=== PATIENT | male | born 1950 | race Caucasian/White ===

== ENCOUNTER 2019-10-02 07:10 | Day surgery (SDC) | payer MEDICARE, BC ==
[2019-10-02] MEDS ORDERED: Lactated Ringers 1,000 ML IV SCH (07:30)
[2019-10-02] MEDS ORDERED: Sodium Phosphate,Monobasic/Sodium Phosphate,Dibasic Enema 133 ML Bottle RECTAL ONE (07:35)
[2019-10-02] MEDS ORDERED: Propofol 200 MG/20 ML SDV ONE ×2 (07:59→09:12)
[2019-10-02] MEDS ORDERED: Midazolam 1 MG/ML 2 ML SDV ONE (07:59)
[2019-10-02] MEDS ORDERED: fentaNYL 100 MCG/2 ML SDV ONE (07:59)
--- NOTE | 2019-10-02 15:33 | OR ---
DATE OF PROCEDURE: 10/02/2019 SURGEON: Jadiel Mckeon MD PREOPERATIVE DIAGNOSIS: Strong family history of colon cancer with mother and sister. POSTOPERATIVE DIAGNOSES: 1. Diverticulosis. 2. Medium distal transverse colon polyp. 3. Small rectal polyp. PROCEDURE PERFORMED: Colonoscopy to the cecum with biopsy and then snare cautery polypectomy of distal transverse colon polyp, biopsy resection of small rectal polyp. ANESTHESIA: IV anesthesia with monitored anesthesia care. INDICATION: This 68-year-old white male is referred for a colonoscopy because of a strong family history of colon cancer. Both his older sister and mother had colon cancer. He says his last colonoscopic exam was done 15 years ago. He says he has been procrastinating. I counseled him for the procedure including risks and alternatives and he gave his informed consent to proceed. DESCRIPTION OF PROCEDURE: The patient was placed in the left lateral decubitus position. IV anesthesia was administered by the Anesthesia Service. Time-out was held. A rectal exam was performed, which was unremarkable. The flexible video Olympus colonoscope was introduced through his anus, up his rectum and out his colon, all the way to the cecum. En route, in the left colon, we saw a few scattered diverticula. There was no bleeding or inflammation associated with them. Additionally, en route in the distal transverse colon, we saw a medium-sized polyp. We initially biopsied it and then removed it with a snare. This involved placing the snare about its base, elevating up and away from the bowel wall, and applying electrocautery as the polyp was amputated. It was aspirated up through the scope and captured in a polyp trap. Once the cecum was reached, the scope was slowly withdrawn examining the mucosa throughout. No additional mucosal abnormalities noted until we reached the rectum. Here, we retroflexed the scope with the distal rectum appearing unremarkable. We straightened the scope. There saw a small polyp which was removed with a few bites of biopsy forceps. The scope was then removed. He tolerated the procedure well. Jadiel Mckeon MD /[id number]
== END 2019-10-02 10:40 | disposition home or self-care (01) ==
LOC: JP.SDS 07:10
PROVIDERS: ATTEND Surgery
DX: Z12.11 Encounter for screening for malignant neoplasm of colon (principal); D12.3 Benign neoplasm of transverse colon; D12.8 Benign neoplasm of rectum; K57.30 Diverticulosis of large intestine without perforation or abscess without bleeding; I10 Essential (primary) hypertension; G25.0 Essential tremor; Z87.891 Personal history of nicotine dependence; Z80.0 Family history of malignant neoplasm of digestive organs; Z79.899 Other long term (current) drug therapy
CPT/HCPCS: 45380; 45385; A9270; J2250; J2704; J3010; J7120

== ENCOUNTER → 2024-01-17 | Day surgery (SDC) | payer BC, MEDICARE ==
[~2024-01-17] MED LIST: Propofol 200 MG/20 ML SDV ONE; fentaNYL 100 MCG/2 ML SDV ONE
[2024-01-17] MEDS: Lactated Ringers 1,000 ML IV SCH (08:20)
== END ==
LOC: JP.SDS 07:54
PROVIDERS: ATTEND Student in an Organized Health Care Education/Training Program
DX: Z12.11 Encounter for screening for malignant neoplasm of colon (principal); D12.3 Benign neoplasm of transverse colon; K57.30 Diverticulosis of large intestine without perforation or abscess without bleeding; K64.5 Perianal venous thrombosis; I10 Essential (primary) hypertension; R25.1 Tremor, unspecified; E78.5 Hyperlipidemia, unspecified; Z87.891 Personal history of nicotine dependence; Z79.899 Other long term (current) drug therapy; Z79.82 Long term (current) use of aspirin
CPT/HCPCS: 45380; 88305; 93005; J2704; J3010; J7120

== ENCOUNTER 2024-04-04 10:04 | Emergency (ER) | payer MEDICARE ==
[2024-04-04 10:32] LABS: BASOPHILS ABSOLUTE AUTO 0.06 K/uL (0.00-0.10); BASOPHILS PERCENT AUTO 0.9 % (0.1-1.3); EOSINOPHILS PERCENT AUTO 4.3 % (0.0-5.4); HEMATOCRIT 36.7 % (38.4-49.7); HEMOGLOBIN 13.2 g/dL (12.9-16.9); IMMATURE GRAN PERCENT AUTO 0.1 % (0.0-0.7); LYMPHOCYTES ABSOLUTE AUTO 1.58 K/uL (0.8-3.3); LYMPHOCYTES PERCENT AUTO 22.9 % (11.4-47.7); MEAN CORPUSCULAR HEMOGLOBIN 33.2 pg (31.6-35.5); MEAN CORPUSCULAR VOLUME 92.2 fL (81.4-99.0); MONOCYTES ABSOLUTE AUTO 0.45 K/uL (0.20-0.90); MONOCYTES PERCENT AUTO 6.5 % (3.3-12.6); NEUTROPHILS PERCENT AUTO 65.3 % (40.0-78.1); PLATELET COUNT,PLT 175 K/uL (130-375); RED BLOOD CELL COUNT 3.98 M/uL (4.14-5.76); WHITE BLOOD CELL COUNT,WBC 6.9 K/uL (3.2-11.0)
[2024-04-04 10:43] LABS: IMMATURE GRAN ABSOLUTE AUTO 0.01 K/uL (0.00-0.23)
[2024-04-04] MEDS: Metoprolol Tartrate 5 MG/5 ML SDV IVPUSH ONE (10:43)
[2024-04-04] MEDS: Sodium Chloride 0.9% 10 ML Syringe FLUSH PRN (10:45)
[2024-04-04 10:57] LABS: CALCIUM 8.7 mg/dL (8.5-10.1); CREATININE 0.9 mg/dL (0.8-1.3); EST CRCL DRUG DOSING (CG) 70.92 mL/min; POTASSIUM,K 4.4 mmol/L (3.6-5.2); TROPONIN I HIGH SENSITIVITY 5.3 pg/mL (<=60.3)
[2024-04-04 11:04] LABS: INR 0.9; PROTHROMBIN TIME 9.5 sec (9.2-10.6); PTT,PARTIAL THROMBOPLSTIN TIME 24.5 sec (21.8-27.3)
[2024-04-04 11:08] LABS: ANION GAP 10.4 mmol/L (5.0-14.0)
== END 2024-04-04 11:00 | disposition critical access hospital (66) ==
LOC: JP.ED 10:04
DX: I62.9 Nontraumatic intracranial hemorrhage, unspecified (principal); I10 Essential (primary) hypertension; Z79.82 Long term (current) use of aspirin; Z79.899 Other long term (current) drug therapy; Z86.19 Personal history of other infectious and parasitic diseases
CPT/HCPCS: 36415; 70450; 80048; 82947; 84484; 85025; 85610; 85730; 93005; 93010; 96374; 99285; J3490

== ENCOUNTER 2025-01-23 08:03 | Day surgery (SDC) | payer MEDICARE ==
[2025-01-23] MEDS ORDERED: fentaNYL 50 MCG/ML SDV ONE (08:57)
[2025-01-23] MEDS ORDERED: Propofol 200 MG/20 ML SDV ONE (08:57)
[2025-01-23] MEDS: Lactated Ringers 1,000 ML IV SCH (09:11)
== END 2025-01-23 11:20 | disposition home or self-care (01) ==
LOC: JP.SDS 08:03
PROVIDERS: ATTEND Surgery
DX: K20.90 Esophagitis, unspecified without bleeding (principal); R13.10 Dysphagia, unspecified; K29.80 Duodenitis without bleeding; K44.9 Diaphragmatic hernia without obstruction or gangrene; I10 Essential (primary) hypertension
CPT/HCPCS: 00731; 43239; 88305; 88312; J2704; J3010; J7120

== ENCOUNTER 2025-02-03 08:49 | Day surgery (SDC) | payer MEDICAID, MEDICARE ==
[2025-02-03] MEDS: Lactated Ringers 1,000 ML IV SCH (09:29)
[2025-02-03] MEDS: metroNIDAZOLE/Normal Saline 500 MG in Premix Bag 1 BAG IV ONE (09:32)
[2025-02-03] MEDS ORDERED: Propofol 200 MG/20 ML SDV ONE ×2 (09:38→10:17)
[2025-02-03] MEDS ORDERED: Midazolam 1 MG/ML 2 ML SDV ONE (09:38)
[2025-02-03] MEDS ORDERED: fentaNYL 100 MCG/2 ML SDV ONE (09:38)
[2025-02-03] MEDS: ceFAZolin 2 GM in Premix Bag 1 BAG IV ONE (09:56)
[2025-02-03] MEDS: Bupivacaine 0.5%/EPINEPHrine 1:200,000 50 ML MDV ONE (10:07)
[2025-02-03] MEDS: Lidocaine 0.5% 50 ML SDV ONE (10:07)
== END 2025-02-03 11:40 | disposition home or self-care (01) ==
LOC: JP.SDS 08:49
PROVIDERS: ATTEND Surgery
DX: K64.8 Other hemorrhoids (principal); K64.4 Residual hemorrhoidal skin tags; K62.0 Anal polyp; I10 Essential (primary) hypertension; E78.5 Hyperlipidemia, unspecified
CPT/HCPCS: 46255; 88304; J0690; J1836; J2250; J2704; J3010; J3490; J7120; 00902-QZ